=== PATIENT | male | born 1960 | race Caucasian/White ===

== ENCOUNTER 2021-02-03 09:45 | Outpatient (REF) | payer MEDICARE, SELFPAY ==
[2021-02-03 11:06] LABS: MANUAL DIFF FLAG NO
[2021-02-03 11:17] LABS: Basophils Percent Auto 0.5 % (0-2); Eosinophils Absolute Auto 0.1 X10*3/uL (0.0-0.4); Eosinophils Percent Auto 1.8 % (0-4); Hemoglobin 18.7 g/dl (14.0-18.0); Imm Gran Abs Auto 0.01 X10*3/uL (0.00-0.03); Imm Gran Pct Auto 0.2 % (0.0-0.4); Lymphocytes Absolute Auto 1.8 X10*3/uL (1.2-4.9); Lymphocytes Percent Auto 32.5 % (20-40); Mean Corpuscular HGB Conc 35.3 g/dl (31.0-36.0); Mean Corpuscular Hemoglobin 33.2 pg (27.0-33.0); Mean Platelet Volume 10.1 fL (9.4-12.4); Monocytes Absolute Auto 0.5 X10*3/uL (0.1-1.2); Monocytes Percent Auto 8.6 % (2-11); Neutrophils Absolute Auto 3.2 X10*3/uL (2.0-8.3); Neutrophils Percent Auto 56.4 % (45-73); Platelet Count 169 X10*3/uL (160-400); Red Blood Count 5.64 X10*6/uL (4.60-5.80); Red Cell Distribution Width 11.9 % (11.0-16.0); White Blood Count 5.7 X10*3/uL (4.8-10.8)
[2021-02-03 11:41] LABS: Alanine Aminotransferase 14 U/L (0-40); Albumin Level 4.5 g/dL (3.5-5.0); Alkaline Phosphatase 84 U/L (39-117); Anion Gap 13 (12-20); Aspartate Amino Transferase 15 U/L (5-37); Bilirubin Total 0.7 mg/dL (0.0-1.0); Blood Urea Nitrogen 12 mg/dL (9-16); Calcium 9.3 mg/dL (8.4-10.2); Carbon Dioxide 27 mmol/L (22-29); Chloride 105 mmol/L (96-108); Cholesterol 185 mg/dL; Estimated Glomerular Filt Rate > 60; Glucose Random 102 mg/dL (60-115); HDL Cholesterol 48 mg/dL; LDL Cholesterol Calculated 110 mg/dl; Potassium 4.4 mmol/L (3.3-5.1); Sodium 141 mmol/L (135-145); Total Protein 7.1 g/dL (6.5-8.0); Triglycerides 136 mg/dL
[2021-02-03 11:45] LABS: Free T4 (Free Thyroxine) 1.03 ng/dL (0.71-1.85); Prostate Specific Antigen Scr 0.74 ng/mL (<0.05-4.0); Thyroid Stimulating Hormone 0.99 uIU/mL (0.32-4.0)
[2021-02-03 11:55] LABS: Folate 16.9 ng/mL (> or = 4.0); Vitamin B12 300 pg/mL (200-900)
== END 2021-02-03 09:46 | disposition home or self-care (01) ==
LOC: HO.HMGCLDS 09:45
PROVIDERS: PCP Internal Medicine; Visit Provider Internal Medicine
DX: Z12.5 Encounter for screening for malignant neoplasm of prostate (principal); E78.1 Pure hyperglyceridemia; K21.9 Gastro-esophageal reflux disease without esophagitis; E78.00 Pure hypercholesterolemia, unspecified
CPT/HCPCS: 36415; 80053; 80061; 82607; 82746; 84153; 84439; 84443; 85025

== ENCOUNTER → 2021-02-17 14:13 | Outpatient (BNVA) | payer MEDICARE, SELFPAY | PROVIDERS: PCP Internal Medicine; Referring Provider Internal Medicine; Visit Provider Surgery | DX: K42.9 Umbilical hernia without obstruction or gangrene (principal) | CPT/HCPCS: 99202 ==

== ENCOUNTER 2022-05-28 08:26 | Outpatient (REF) | payer MEDICARE, SELFPAY ==
[2022-05-28 11:24] LABS: MANUAL DIFF FLAG NO
[2022-05-28 11:48] LABS: Alanine Aminotransferase 19 U/L (0-40); Albumin Level 4.3 g/dL (3.5-5.0); Alkaline Phosphatase 79 U/L (39-117); Anion Gap 11 (12-20); Aspartate Amino Transferase 18 U/L (5-37); Blood Urea Nitrogen 20 mg/dL (9-16); Carbon Dioxide 27 mmol/L (22-29); Chloride 104 mmol/L (96-108); Cholesterol 180 mg/dL; Estimated Glomerular Filt Rate > 60; Glucose Random 108 mg/dL (60-115); HDL Cholesterol 50 mg/dL; LDL Cholesterol Calculated 113 mg/dl; Potassium 4.2 mmol/L (3.3-5.1); Sodium 138 mmol/L (135-145); Total Protein 6.8 g/dL (6.5-8.0); Triglycerides 86 mg/dL
[2022-05-28 12:20] LABS: Free T4 (Free Thyroxine) 0.98 ng/dL (0.71-1.85); Prostate Specific Antigen Scr 0.56 ng/mL (<0.05-4.0); Thyroid Stimulating Hormone 0.86 uIU/mL (0.32-4.0)
[2022-05-28 12:43] LABS: Basophils Percent Auto 0.7 % (0-2); Eosinophils Absolute Auto 0.1 X10*3/uL (0.0-0.4); Eosinophils Percent Auto 0.8 % (0-4); Hematocrit 53.4 % (42.0-52.0); Hemoglobin 18.3 g/dl (14.0-18.0); Imm Gran Abs Auto 0.01 X10*3/uL (0.00-0.03); Imm Gran Pct Auto 0.2 % (0.0-0.4); Lymphocytes Absolute Auto 1.7 X10*3/uL (1.2-4.9); Lymphocytes Percent Auto 27.4 % (20-40); Mean Corpuscular HGB Conc 34.3 g/dl (31.0-36.0); Mean Corpuscular Hemoglobin 32.7 pg (27.0-33.0); Mean Corpuscular Volume 95.4 fL (80.0-98.0); Mean Platelet Volume 10.2 fL (9.4-12.4); Monocytes Absolute Auto 0.7 X10*3/uL (0.1-1.2); Monocytes Percent Auto 10.9 % (2-11); Neutrophils Absolute Auto 3.7 x10*3/uL (2.0-8.3); Platelet Count 163 X10*3/uL (160-400); Red Cell Distribution Width 11.6 % (11.0-16.0); White Blood Count 6.1 X10*3/uL (4.8-10.8)
[2022-05-28 16:55] LABS: Vitamin B12 326 pg/mL (200-900)
[2022-06-03 13:11] LABS: Testosterone, Total 466 ng/dL (250-1100)
== END 2022-05-28 08:27 | disposition home or self-care (01) ==
LOC: HO.HMGCLDS 08:26
PROVIDERS: PCP Internal Medicine; Visit Provider Internal Medicine
DX: Z12.5 Encounter for screening for malignant neoplasm of prostate (principal); R73.02 Impaired glucose tolerance (oral); F41.1 Generalized anxiety disorder; E78.00 Pure hypercholesterolemia, unspecified
CPT/HCPCS: 36415; 80053; 80061; 82607; 82746; 84153; 84403; 84439; 84443; 85025

== ENCOUNTER → 2022-07-30 09:58 | Outpatient (BNVA) | payer MEDICARE, SELFPAY | PROVIDERS: PCP Internal Medicine; Referring Provider Internal Medicine; Visit Provider Surgery | DX: K42.9 Umbilical hernia without obstruction or gangrene (principal) | CPT/HCPCS: 99212 ==

== ENCOUNTER 2022-08-25 06:03 | Day surgery (SDC) | payer MEDICARE, SELFPAY ==
[2022-08-20 11:02] VITALS: BMI 26.6
[2022-08-25] VITALS (11 sets, daily range): BP systolic 127–171; BP diastolic 89–125; PULSE 76–104; RESP 17–18; TEMP 36.2–36.4; O2SAT 93–98
[2022-08-25] MEDS: Lactated Ringers 1,000 ML 50 ML IVCONT (06:24)
--- NOTE | 2022-08-25 07:15 | P.CONAN_ITS ---
HPI - Anesthesia Eval Consult details Narrative: 62yo male patient for umbilical hernia repair with mesh PMFSH Active Problems Active Problems: All Active Problems (Updated 08/25/22 @ 07:20 by Aidee Yu MD) Erectile dysfunction (Acute) Disc disease, degenerative, cervical (Acute) Tobacco abuse (Acute) Ventral hernia without obstruction or gangrene (Acute) Sebaceous cyst (Acute) Impaired glucose tolerance (Acute) Generalized anxiety disorder (Acute) Polycythemia (Acute) Annual physical exam (Acute) Back pain (Acute) Cough (Acute) Pain of left scapula (Acute) Abdominal wall hernia (Acute) Colonoscopy refused (Acute) Umbilical hernia (Acute) Hypertriglyceridemia (Acute) GERD (gastroesophageal reflux disease) (Acute) Obstructive sleep apnea (Acute)- does not use CPAP. Cannot tolerate White coat syndrome- Initial BP today 08/25/22 ??171/121. No documented h/o HTN Very nervous Past Medical History Medical History Degenerative disc disease, cervical GERD (gastroesophageal reflux disease) Hypertriglyceridemia Migraine Obstructive sleep apnea Umbilical hernia Family History Family History Father No problems noted. Mother No problems noted. Brother No problems noted. Sister No problems noted. Sister No problems noted. Sister No problems noted. Sister No problems noted. Family history of problems with anesthesia: No Surgical History Surgical History History of shoulder surgery History of Problems with Anesthesia: No Social History Social History (Updated 08/25/22 @ 08:02 by Aidee Yu MD) Housing: Apartment Housing Other:: mobile home Are you a primary group care worker to a significant other at home: No Do you presently have visiting nurse or other home services: No Alcohol intake: never Patient Tobacco Use Status: Current everyday Tobacco user Tobacco use type: Cigarette Cigarette Packs Per Day: 1 Cigarettes Per Day: 20.0 Years Smoked: 25 Smoked in Last 30 Days: Yes e-Cigarette/Vaping Use: Never Used Second Hand Smoke Exposure: Yes Use of substances other than those prescribed or required for medical reasons: No Have you been hit, kicked, punched, or otherwise hurt by someone within the past year? If so, by whom?: No Are you DNR?: No Advance Directives: No Advance Directives Information Provided: Yes (brochure mailed) Advance Directives on File: No Recently lost weight without trying: No Eating poorly because of decreased appetite: No Nutrition Risks: No Nutritional Risk Poor oral hygiene: No service: No Current occupational status: disabled Cognitive needs: No Hearing needs: No Vision needs: Yes Meds Allergies Allergy/AdvReac Type Severity Reaction Status Date / Time No Known Allergies Allergy Verified 08/25/22 07:20 Active Medications: Current Medications Lactated Ringer's (Lr) 1,000 mls @ 50 mls/hr IVCONT .Q20H CHERYL Last Admin: 08/25/22 06:24 Dose: 50 mls/hr Exam Exam Date and Time: August 25, 2022 0715 Height,Weight and Vital Signs: Height 5 ft 8 in Weight 79.379 kg Last Vital Signs Temp 97.5 F 08/25/22 06:00 Pulse 87 08/25/22 06:59 Resp 18 08/25/22 06:59 BP 158/106 H 08/25/22 06:59 Pulse Ox 97 08/25/22 06:00 O2 Del Method 08/25/22 06:00 Airway Mallampati Class: III (Overcrowded teeth in front, high arched palate) TM Dist: >3cm Neck ROM: Limited (But extension OK) Loose/Missing/Broken Teeth: No (Denies broken, loose, missing teeth) Heart: RRR Lungs: CTAB Assessment and Plan Assessment Anesthesia Assessment: Anesthesia Plan Discussed and Chart Reviewed Final Anesthetic Review Family History of Problems with Anesthesia: No History of Problems with Anesthesia: No NPO: Yes ASA Class: III Final Preanesthetic Review: No Changes in Pt Med Stat, Meds/Allgs Chart Reviewed, Consent Obtained/Reviewed and Anes Risks/Benef Reviewed Patient Risk: Intermediate Procedure Risk: Low Assessment/Block/Sedation in SS: Assess/Block/Sedation-SS Anesthetic Plan Anesthetic Plan: GA Disposition: Standard PACU
--- NOTE | 2022-08-25 07:33 | MHC.SHP ---
Pre-Procedural Eval Section A Date of Service: 08/25/22 The patient is an INPATIENT: No Changes since office visit: No Cold of Flu in the past 2 weeks, No New Medical Problems, No Changes in Medication and No Patient answered all questions The History & Physical has been completed within 30 days and I have reviewed it.: Yes Section B Chief Complaint: Umbilical hernia without obstruction or gangrene Allergies: Allergies Allergy/AdvReac Type Severity Reaction Status Date / Time No Known Allergies Allergy Verified 08/25/22 07:20 Plan I have reviewed the history and physical and performed a pertinent physical examination on my patient. No changes have occurred unless specified. Time Spent With Patient Time: Total time managing care of this patient today ____ minutes.
--- NOTE | 2022-08-25 08:04 | P.OP_ITS ---
Operative Note Operative Note Date of Service: 08/25/22 Narrative: Diagnosis: Umbilical hernia Postop diagnosis: Umbilical hernia Procedure: Repair of umbilical hernia with Ventralex mesh Surgeon: Sukh Mora MD outpatient physical therapist assistant: ANTOINE Whitney The patient is a 62-year-old male with an umbilical hernia, reducible. He understood the technique of repair with mesh. He was aware of the risks, benefits, and alternatives He was brought to the operating room placed supine under general anesthesia via laryngeal mask airway. A surgical time-out was done. The abdomen was prepped and draped in the usual sterile fashion. The patient received cefazolin 2 g IV preoperatively I infiltrated the planned line of incision with lidocaine 1%. I made the transverse linear supraumbilical incision using blade 15. This was carried down with electrocautery through the full-thickness of the skin subcutaneous fat until was able to visualize the hernia. I proceeded to separate the hernia off of the rest the umbilicus using sharp dissection with Metzenbaum scissors as well as electrocautery until was able to lift off the umbilicus a flap. The entire hernia was from the flap. I continued to do sharply dissect the hernia off of the rest of the subcutaneous layer down to the fascial edges. I freed up the hernia contents from the fascial edge which sharp dissection until I was able to completely reduce this. This defect was about 1 cm in diameter. The hernia contains only fat. The margins under the defect were clears I positioned a small-sized Ventralex mesh flat under the fascia. I secured this to the fascial edge with Prolene 3 0 sutures to the Prolene straps of the mesh. I trimmed the Prolene straps flush on the fascial level. I closed the fascial defect with a figure-eight Maxon 1 stitch. The umbilicus was tacked down to the fascia with a Dexon 3-0 stitch to re-create the dimple. Subcutaneous layer was reapposed with Dexon 3-0 interrupted sutures. Skin closure was achieved with Dexon 4-0 subcuticular running sutures. The area was infiltrated with Marcaine 0.5% for postop analgesia.Steri-Strips and dressings were applied. The procedure was completed. The patient tolerated procedure well. There were no immediate complications. Initial and final counts of sponges and instruments were correct. Estimated blood loss was about less than 5 cc. The patient was extubated without difficulty and transferred to the recovery room with stable vital signs.
[2022-08-25] MEDS: fentaNYL citrate/PF 100 MCG/2 ML VIAL 25 MCG IVPUSH (08:34)
[2022-08-25] MEDS: Acetaminophen 325 MG TABLET 650 MG PO (08:35)
[2022-08-25] MEDS: oxyCODONE HCl Immed Release 5 MG TABLET PO (08:35)
== END 2022-08-25 09:43 | disposition home or self-care (01) ==
PROVIDERS: PCP Internal Medicine; Visit Provider Surgery
PROC: (CPT 49591; principal; 2022-08-25 07:30)
DX: K42.9 Umbilical hernia without obstruction or gangrene (principal); K21.9 Gastro-esophageal reflux disease without esophagitis; G47.33 Obstructive sleep apnea (adult) (pediatric); E78.1 Pure hyperglyceridemia; G43.909 Migraine, unspecified, not intractable, without status migrainosus; Z79.899 Other long term (current) drug therapy; F17.210 Nicotine dependence, cigarettes, uncomplicated
CPT/HCPCS: 49591; C1781; J0690; J1100; J1885; J2250; J2405; J2795; J3010

== ENCOUNTER → 2022-09-07 11:27 | Outpatient (BNVA) | payer MEDICARE, SELFPAY | PROVIDERS: PCP Internal Medicine; Visit Provider Surgery | DX: Z13.89 Encounter for screening for other disorder (principal) ==

== ENCOUNTER 2023-06-07 08:43 | Outpatient (AMB) | payer MEDICARE, SELFPAY ==
[2023-06-07 08:44] VITALS: BP 138/92; PULSE 91; O2SAT 97; BMI 25.1
--- NOTE | 2023-06-07 08:44 | A.OFFPC_ITS ---
Vital Signs 06/07/23 08:44 06/07/23 08:59 Height 5 ft 8 in Weight 165 lb 0.4 oz BMI 25.1 BP 138/92 H 136/90 H Blood Pressure Location Lt brachial Lt brachial Position Sitting Sitting Pulse 91 Pulse Source Pulse Oximeter Pulse Oximetry (%) 97 Oxygen Delivery Method Room Air Intake Visit Reasons: Annual exam Hand Engraver Required: No Allergies No Known Allergies Allergy (Verified 06/07/23 08:44) Medication List - Last Reconciled 06/07/23 by Mykel Chapa MD omeprazole 20 mg PO DAILY 90 days sildenafil (Viagra) 100 mg PO DAILY PRN Tobacco use date assessed: 06/07/23 Dental Screening Dental Screen Date: 06/07/23 Did you have a dental visit in the last 12 months?: Yes Did you have a dental problem in the last 6 months where you did not have access to dental care?: No Was dental information given to patient?: Patient has dentist HPI Annual exam HPI Details 63-year-old male smoker with a history o f impaired glucose tolerance GERD hypertriglyceridemia polycythemia generalized anxiety disorder last seen in November 2022. Patient is here for physical exam. sepereated with girlfriend and depressed lately [facility] Medical History (Updated 06/07/23 @ 09:17 by Mykel Chapa MD) Back pain Umbilical hernia Sebaceous cyst Ventral hernia without obstruction or gangrene Disc disease, degenerative, cervical Degenerative disc disease, cervical Abdominal wall hernia Pain of left scapula Cough Hypertriglyceridemia Migraine GERD (gastroesophageal reflux disease) Obstructive sleep apnea Surgical History History of umbilical hernia repair (08/25/22) History of shoulder surgery Family History (Updated 11/26/22 @ 08:40 by Kelly Chapin CMA) Father No problems noted. Mother No problems noted. Brother No problems noted. Sister No problems noted. Sister No problems noted. Sister No problems noted. Sister No problems noted. (Updated 06/07/23 @ 09:04 by Mykel Chapa MD) Housing: Apartment Housing Other:: mobile home Are you a primary managed care nurse to a significant other at home: No Do you presently have visiting nurse or other home services: No Alcohol intake: never Patient Tobacco Use Status: Current everyday Tobacco user Tobacco use type: Cigarette Cigarette Packs Per Day: 1 Cigarettes Per Day: 20.0 Years Smoked: 25, pack a day e-Cigarette/Vaping Use: Never Used Second Hand Smoke Exposure: Yes service: No Current occupational status: disabled Cognitive needs: No Hearing needs: No Vision needs: Yes Questionnaire PHQ-9 Over the last 2 weeks, how often have you been bothered by any of the following problems? 1. Little interest or pleasure in doing things: not at all 2. Feeling down, depressed, or hopeless: several days 3. Trouble falling or staying asleep, or sleeping too much: not at all 4. Feeling tired or having little energy: not at all 5. Poor appetite or overeating: not at all 6. Feeling bad about yourself - or that you are a failure or have let yourself or your family down: not at all 7. Trouble concentrating on things, such as reading the newspaper or watching television: not at all 8. Moving or speaking so slowly that other people could have noticed. Or the opposite - being so fidgety or restless that you have been moving around a lot more than usual: not at all 9. Thoughts that you would be better off or of hurting yourself in some way: not at all Total score: 1 Depression Screening Interpretation: Negative Depression Screening Done: Yes Source: Developed by Drs. Dagoberto Mazariegos, Nery Shin, Jero Emanuel and colleagues, with an educational penelope from [employer]. Thrive Questionnaire Date Thrive assessed: 11/26/22 AUDIT C Alcohol Use Questionnaire (AUDIT-C) 1. How often do you have a drink containing alcohol?: Monthly or less 2. How many drinks containing alcohol do you have on a typical day when you are drinking?: 1 or 2 3. How often do you have six or more drinks on one occasion?: Never Total Score: 1 WALLACE-7 AMB Questionnaire WALLACE-7 Date WALLACE - 7 assessed: 06/07/23 Feeling nervous, anxious, or on edge: 1 = Several days Not being able to stop or control worryin = Several days Worrying too much about different things: 0 = Not at all Trouble relaxin = Not at all Being so restless that it is hard to sit still: 0 = Not at all Becoming easily annoyed or irritable: 0 = Not at all Feeling afraid as if something awful might happen: 0 = Not at all Total WALLACE-7 score (0-4 normal; 5-9 mild; 10-14 moderate; 15-21 severe): 2 Source: Developed by Drs. Dagoberto Mazariegos, Nery Shin, Jero Emanuel and colleagues, with an educational penelope from [employer]. Review of Systems Const Denies poor appetite and Denies weakness Eyes Denies no additional complaints ENT Reports Normal hearing present, Denies dizziness, Denies nasal congestion, Denies tinnitus and Denies sore throat Card Denies chest pain, Denies syncope, Denies rapid heart rate and Denies dyspnea Resp Denies cough and Denies dyspnea GI Denies change in stool character, Reports constipation, Denies diarrhea, Denies nausea and Denies vomiting Denies dysuria and Denies urinary frequency Neuro Reports Normal hearing present, Denies confusion, Denies dizziness, Denies syncope and Denies weakness Psych Denies confusion Physical exam (Primary Care) Vital Signs: Last Vital Signs Pulse 91 06/07/23 08:44 BP 138/92 H 06/07/23 08:44 Pulse Ox 97 06/07/23 08:44 Oxygen Delivery Method Room Air 06/07/23 08:44 BMI result Body Mass Index 25.1 Tobacco/Smoking Status: Tobacco use Status Tobacco use date assessed 06/07/23 06/07/23 08:45 Patient Tobacco Use Status Current everyday Tobacco 06/07/23 08:45 Tobacco use type Cigarette 06/07/23 08:45 e-Cigarette/Vaping Use Never Used 06/07/23 08:45 PHQ-9: PHQ-9 Score PHQ-9: Total score 1 06/07/23 08:51 Depression Screening Interpretation: Negative Thrive Assessment: Date of Thrive Assessment Date Thrive assessed 11/26/22 06/07/23 08:45 Const General: No confusion Orientation/consciousness: No confusion HENMT Head: Yes normocephalic Ears: external ears normal and TM's normal bilaterally Face and sinus: Yes normal facial exam Mouth: moist mucous membranes Throat: Yes tonsils normal Eyes Conjunctivae: conjunctivae normal Pupils: Equal, round and reactive pupils present and Pupil accommodation reflex normal Direct Ophthalmoscopy: normal light reflex Neck Neck: No lymphadenopathy Thyroid: Thyroid normal Chest Chest palpation & inspection: normal inspection of the chest Resp Effort & Inspection: normal respiratory effort and no audible wheezes Auscultation: clear to auscultation bilaterally Cardio Rate: regular rate Rhythm: regular rhythm Peripheral pulses: radial pulses present and dorsalis pedis present GI Other: guaiac negative and proste mild enlarged no mass Inspection: Yes normal to inspection Palpation (GI): no masses Auscultation: normal bowel sounds and normoactive bowel sounds Male General Exam: Yes normal external exam Skin General skin exam: no rashes or lesions noted Rashes: no rashes Neuro General: No confusion Cranial nerves: Yes Equal, round and reactive pupils present and Yes Normal hearing present Cognition (Neuro): normal cognition Gait exam (Neuro): Normal gait present Motor exam (neuro): 5/5 motor strength present throughout Deep tendon reflexes (DTR's): Right brachioradialis reflex intensity grade: 2+, Left brachioradialis reflex intensity grade: 2+, Right patellar reflex intensity grade: 2+ and Left patellar reflex intensity grade: 2+ Extrem General: Yes normal to inspection and No edema Assessment and Plan Assessment & Plan (1) Annual physical exam: Code(s): Z00.00 - Encounter for general adult medical examination without abnormal findings (2) GERD (gastroesophageal reflux disease): Code(s): K21.9 - Gastro-esophageal reflux disease without esophagitis Qualifiers: Esophagitis presence: without esophagitis Qualified Code(s): K21.9 - Gastro-esophageal reflux disease without esophagitis Plan: Avoid the foods that causes that usually spicy foods, tomato products, juices, coffee, soda and foods that your sensitive to. After eating do not lie down, allow 3-4 hours before in lie down. And keep the head of bed above 30 degrees to avoid the acid from going up. Advised to stop smoking patient is on omeprazole (3) Obstructive sleep apnea: Comment: cannot tolerate CPAP (05/2021) Code(s): G47.33 - Obstructive sleep apnea (adult) (pediatric) Plan: Discussed importance of treating obstructive sleep apnea. Noted weight loss (4) Hypertriglyceridemia: Code(s): E78.1 - Pure hyperglyceridemia Plan: Avoid fried foods, chicken skin, eggs, butter margarine, pastries and meat. Be it pork or beef they have a lot of cholesterol LDL goal of less than 130 and triglyceride of less than 150 blood work requested (5) Polycythemia: Comment: discussed about stopping smoking Code(s): D75.1 - Secondary polycythemia Plan: Stop smoking! Continue to be followed (6) Tobacco abuse: Code(s): Z72.0 - Tobacco use Plan: Patient is advised strongly to stop smoking! (7) Generalized anxiety disorder: Comment: Declined any counseling Code(s): F41.1 - Generalized anxiety disorder Plan: Continue with medication declined any counseling (8) Impaired glucose tolerance: Code(s): R73.02 - Impaired glucose tolerance (oral) Plan: Decrease the amount of carbohydrate intake, pasta, bread, rice and potatoes are all sugar and that is aside from all the sweet stuff, remember that fruits are good but they are Sweet also. Blood work requested (9) Colonoscopy refused: Code(s): Z53.20 - Procedure and treatment not carried out because of patient's decision for unspecified reasons (10) Colon cancer screening: Code(s): Z12.11 - Encounter for screening for malignant neoplasm of colon (11) Blood pressure elevated without history of HTN: Code(s): R03.0 - Elevated blood-pressure reading, without diagnosis of hypertension Plan: blood pressure elevated , will monitor for now blood work advised Orders: Referrals Cologuard Test Z12.11 - Encounter for screening for malignant neoplasm of colon Psychiatry Referral F41.1 - Generalized anxiety disorder Coding Level of Care Code Est Pt Prev Care 40-64y([id number]) Diagnoses Annual physical exam Z00.00 Gastroesophageal reflux disease without esophagitis K21.9 Esophagitis presence: without esophagitis Obstructive sleep apnea G47.33 Hypertriglyceridemia E78.1 Polycythemia D75.1 Tobacco abuse Z72.0 Generalized anxiety disorder F41.1 Impaired glucose tolerance R73.02 Colonoscopy refused Z53.20 Colon cancer screening Z12.11 Blood pressure elevated without history of HTN R03.0
[2023-06-07 08:59] VITALS: BP 136/90
== END 2023-06-07 09:25 | disposition home or self-care (01) ==
PROVIDERS: Visit Provider Internal Medicine
DX: Z00.00 Encounter for general adult medical examination without abnormal findings (principal); K21.9 Gastro-esophageal reflux disease without esophagitis; G47.33 Obstructive sleep apnea (adult) (pediatric); E78.1 Pure hyperglyceridemia; D75.1 Secondary polycythemia; Z72.0 Tobacco use; F41.1 Generalized anxiety disorder; R73.02 Impaired glucose tolerance (oral); Z53.20 Procedure and treatment not carried out because of patient's decision for unspecified reasons; Z12.11 Encounter for screening for malignant neoplasm of colon; R03.0 Elevated blood-pressure reading, without diagnosis of hypertension
CPT/HCPCS: 99396

== ENCOUNTER 2023-06-17 06:28 | Outpatient (REF) | payer MEDICARE, SELFPAY ==
[2023-06-17 11:14] LABS: MANUAL DIFF FLAG NO
[2023-06-17 11:37] LABS: Basophils Percent Auto 0.5 % (0-2); Eosinophils Absolute Auto 0.1 X10*3/uL (0.0-0.4); Eosinophils Percent Auto 0.8 % (0-4); Hematocrit 53.7 % (42.0-52.0); Hemoglobin 18.1 g/dl (14.0-18.0); Imm Gran Abs Auto 0.02 X10*3/uL (0.00-0.03); Imm Gran Pct Auto 0.3 % (0.0-0.4); Lymphocytes Absolute Auto 1.5 X10*3/uL (1.2-4.9); Lymphocytes Percent Auto 23.4 % (20-40); Mean Corpuscular HGB Conc 33.7 g/dl (31.0-36.0); Mean Corpuscular Hemoglobin 32.7 pg (27.0-33.0); Mean Corpuscular Volume 97.1 fL (80.0-98.0); Mean Platelet Volume 10.7 fL (9.4-12.4); Monocytes Absolute Auto 0.6 X10*3/uL (0.1-1.2); Monocytes Percent Auto 9.2 % (2-11); Neutrophils Absolute Auto 4.1 x10*3/uL (2.0-8.3); Neutrophils Percent Auto 65.8 % (45-73); Platelet Count 179 X10*3/uL (160-400); Red Blood Count 5.53 X10*6/uL (4.60-5.80); Red Cell Distribution Width 11.7 % (11.0-16.0); White Blood Count 6.3 X10*3/uL (4.8-10.8)
[2023-06-17 11:52] LABS: Estimated Average Glucose 117 mg/dL; Hemoglobin A1c % 5.7 % (<6.0)
[2023-06-17 12:23] LABS: Alanine Aminotransferase 13 U/L (0-40); Albumin Level 4.4 g/dL (3.5-5.0); Alkaline Phosphatase 79 U/L (39-117); Anion Gap 11 (12-20); Aspartate Amino Transferase 15 U/L (5-37); Bilirubin Total 0.8 mg/dL (0.0-1.0); Blood Urea Nitrogen 23 mg/dL (9-16); Calcium 9.4 mg/dL (8.4-10.2); Carbon Dioxide 30 mmol/L (22-29); Chloride 107 mmol/L (96-108); Cholesterol 154 mg/dL (<200); Estimated Glomerular Filt Rate > 60; Glucose Random 111 mg/dL (60-115); HDL Cholesterol 51 mg/dL (>40); LDL Cholesterol Calculated 87 mg/dL (<100); Potassium 4.2 mmol/L (3.3-5.1); Sodium 144 mmol/L (135-145); Triglycerides 81 mg/dL (<150)
[2023-06-17 12:26] LABS: Free T4 (Free Thyroxine) 0.97 ng/dL (0.71-1.85); Thyroid Stimulating Hormone 1.14 uIU/mL (0.32-4.0)
[2023-06-17 12:35] LABS: Folate 9.2 ng/mL (> or = 4.0); Prostate Specific Antigen Scr 0.69 ng/mL (<0.05-4.0); Vitamin B12 311 pg/mL (200-900)
== END 2023-06-17 06:29 | disposition home or self-care (01) ==
LOC: HO.HMGCLDS 06:28
PROVIDERS: PCP Internal Medicine; Visit Provider Internal Medicine
DX: R73.02 Impaired glucose tolerance (oral) (principal); E78.1 Pure hyperglyceridemia; D75.1 Secondary polycythemia; E78.00 Pure hypercholesterolemia, unspecified; Z12.5 Encounter for screening for malignant neoplasm of prostate
CPT/HCPCS: 36415; 80053; 80061; 82607; 82746; 83036; 84153; 84439; 84443; 85025

== ENCOUNTER 2023-08-23 10:48 | Outpatient (AMB) | payer MEDICARE, SELFPAY ==
[2023-08-23 10:51] VITALS: BP 118/96; PULSE 131; O2SAT 98; BMI 25.2
--- NOTE | 2023-08-23 10:51 | MHC.PC.OV ---
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: No Allergies No Known Allergies Allergy (Verified 08/23/23 10:51) Medication List - Last Reconciled 08/23/23 by Mykel Chapa MD alprazolam 0.5 mg PO BID PRN 30 days omeprazole 20 mg PO DAILY 90 days sildenafil (Viagra) 100 mg PO DAILY PRN vilazodone (Viibryd) 20 mg PO DAILY Tobacco use date assessed: 08/23/23 Dental Screening Dental Screen Date: 08/23/23 HPI blood pressure elevated HPI Details 63-year-old male smoker with GERD obstructive sleep apnea hypertriglyceridemia generalized anxiety disorder impaired glucose tolerance last seen in May 2023 and noted to have an elevated blood pressure patient is here for follow-up. Blood work done showing polycythemia [facility] Medical History (Updated 08/23/23 @ 11:36 by Mykel Chapa MD) Back pain Umbilical hernia Sebaceous cyst Ventral hernia without obstruction or gangrene Disc disease, degenerative, cervical Degenerative disc disease, cervical Abdominal wall hernia Pain of left scapula Cough Hypertriglyceridemia Migraine GERD (gastroesophageal reflux disease) Obstructive sleep apnea Surgical History History of umbilical hernia repair (08/25/22) History of shoulder surgery Family History (Updated 11/26/22 @ 08:40 by Kelly Chapin [facility]) Father No problems noted. Mother No problems noted. Brother No problems noted. Sister No problems noted. Sister No problems noted. Sister No problems noted. Sister No problems noted. Social History (Updated 06/07/23 @ 09:04 by Mykel Chapa MD) Housing: Apartment Housing Other:: mobile home Are you a primary wound care center consultant to a significant other at home: No Do you presently have visiting nurse or other home services: No Alcohol intake: never Patient Tobacco Use Status: Current everyday Tobacco user Tobacco use type: Cigarette Cigarette Packs Per Day: 1 Cigarettes Per Day: 20.0 Years Smoked: 25, pack a day e-Cigarette/Vaping Use: Never Used Second Hand Smoke Exposure: Yes service: No Current occupational status: disabled Cognitive needs: No Hearing needs: No Vision needs: Yes Questionnaire PHQ-9 Over the last 2 weeks, how often have you been bothered by any of the following problems? 1. Little interest or pleasure in doing things: not at all 2. Feeling down, depressed, or hopeless: several days 3. Trouble falling or staying asleep, or sleeping too much: not at all 4. Feeling tired or having little energy: not at all 5. Poor appetite or overeating: not at all 6. Feeling bad about yourself - or that you are a failure or have let yourself or your family down: not at all 7. Trouble concentrating on things, such as reading the newspaper or watching television: not at all 8. Moving or speaking so slowly that other people could have noticed. Or the opposite - being so fidgety or restless that you have been moving around a lot more than usual: not at all 9. Thoughts that you would be better off or of hurting yourself in some way: not at all Total score: 1 Depression Screening Interpretation: Positive Depression Screening Follow-up: Existing condition and In treatment Depression Screening Done: Yes Source: Developed by Drs. Dagoberto Mazariegos, Nery Shin, Jero Emanuel and colleagues, with an educational penelope from [employer]. Thrive Questionnaire Date Thrive assessed: 08/23/23 I am a: Patient What is your living situation today?: I have a steady place to live Within the past 12 months, did the food you bought not last and you didn't have the money to get more?: Never true Within the past 12 months, did you worry whether your food would run out before you got money to buy more?: Never true Do you have trouble paying for medicines?: No Do you have trouble getting transportation to medical appointments?: No Do you have trouble paying your heating and electricity bill?: No Do you have trouble taking care of your child, family member or friend?: No Do you have trouble with day-to-day activities such as bathing, preparing meals, shopping, managing finances, etc.?: No Are you currently unemployed and looking for a job?: No Are you interested in more education?: No Please select the resources that you would like help with: None THRIVE Score: 0 AUDIT C Alcohol Use Questionnaire (AUDIT-C) 1. How often do you have a drink containing alcohol?: Monthly or less 2. How many drinks containing alcohol do you have on a typical day when you are drinking?: 1 or 2 3. How often do you have six or more drinks on one occasion?: Never Total Score: 1 WALLACE-7 AMB Questionnaire WALLACE-7 Date WALLACE - 7 assessed: 08/23/23 Feeling nervous, anxious, or on edge: 1 = Several days Not being able to stop or control worryin = Several days Worrying too much about different things: 0 = Not at all Trouble relaxin = Not at all Being so restless that it is hard to sit still: 0 = Not at all Becoming easily annoyed or irritable: 0 = Not at all Feeling afraid as if something awful might happen: 0 = Not at all Total WALLACE-7 score (0-4 normal; 5-9 mild; 10-14 moderate; 15-21 severe): 2 Source: Developed by Drs. Dagoberto Mazariegos, Nery Shin, Jero Emanuel and colleagues, with an educational penelope from [employer]. Physical exam (Primary Care) Vital Signs: Last Vital Signs Pulse 131 H 08/23/23 10:51 BP 118/96 H 08/23/23 10:51 Pulse Ox 98 08/23/23 10:51 Oxygen Delivery Method Room Air 08/23/23 10:51 BMI result Body Mass Index 25.2 Tobacco/Smoking Status: Tobacco use Status Tobacco use date assessed 08/23/23 08/23/23 10:52 Patient Tobacco Use Status Current everyday Tobacco 08/23/23 10:52 Tobacco use type Cigarette 08/23/23 10:52 e-Cigarette/Vaping Use Never Used 08/23/23 10:52 PHQ-9: PHQ-9 Score PHQ-9: Total score 1 08/23/23 11:36 Depression Screening Interpretation: Positive Depression Screening Follow-up: Existing condition and In treatment Thrive Assessment: Date of Thrive Assessment Date Thrive assessed 08/23/23 08/23/23 10:52 Const General: alert; No acute distress Eyes Conjunctivae: conjunctivae normal Resp Auscultation: clear to auscultation bilaterally Cardio Rate: regular rate Rhythm: regular rhythm GI Inspection: Yes normal to inspection Extrem General: Yes normal to inspection and No edema Assessment and Plan Assessment & Plan (1) Blood pressure elevated without history of HTN: Code(s): R03.0 - Elevated blood-pressure reading, without diagnosis of hypertension Plan: Concern about elevated blood pressure, low-salt diet (2) Tobacco abuse: Code(s): Z72.0 - Tobacco use Plan: Strongly advised to stop! (3) Impaired glucose tolerance: Code(s): R73.02 - Impaired glucose tolerance (oral) Plan: Decrease the amount of carbohydrate intake, pasta, bread, rice and potatoes are all sugar and that is aside from all the sweet stuff, remember that fruits are good but they are Sweet also. (4) Polycythemia: Comment: discussed about stopping smoking Code(s): D75.1 - Secondary polycythemia Plan: Patient is strongly advised to stop smoking! (5) Generalized anxiety disorder: Comment: Declined any counseling, 08/2023 counselling private Code(s): F41.1 - Generalized anxiety disorder Plan: medication for alprazolam advised and increased. decaf advised (6) Tachycardia: Code(s): R00.0 - Tachycardia, unspecified Plan: patient states very anxious. advised to drink decaf Medications: Changed From alprazolam 0.25 mg PO BEDTIME PRN 14 tabs 0RF sleep F41.1 - Generalized anxiety disorder To alprazolam 0.5 mg PO BID 30 days PRN 60 tabs 0RF sleep F41.1 - Generalized anxiety disorder Coding Level of Care Code Est Pt Level 4 (60182) Diagnoses Blood pressure elevated without history of HTN R03.0 Tobacco abuse Z72.0 Impaired glucose tolerance R73.02 Polycythemia D75.1 Generalized anxiety disorder F41.1 Tachycardia R00.0
== END 2023-08-23 11:51 | disposition home or self-care (01) ==
PROVIDERS: PCP Internal Medicine; Visit Provider Internal Medicine
DX: R03.0 Elevated blood-pressure reading, without diagnosis of hypertension (principal); Z72.0 Tobacco use; R73.02 Impaired glucose tolerance (oral); D75.1 Secondary polycythemia; F41.1 Generalized anxiety disorder; R00.0 Tachycardia, unspecified
CPT/HCPCS: 99214

== ENCOUNTER 2023-10-06 13:46 | Outpatient (AMB) | payer MEDICARE, SELFPAY ==
[2023-10-06 13:51] VITALS: BP 128/84; PULSE 76; O2SAT 97; BMI 25.7
--- NOTE | 2023-10-06 13:51 | MHC.PC.OV ---
Vital Signs 10/06/23 13:51 Height 5 ft 8 in Weight 169 lb BMI 25.7 BP 128/84 Blood Pressure Location Lt brachial Position Sitting Pulse 76 Pulse Source Pulse Oximeter Pulse Oximetry (%) 97 Oxygen Delivery Method Room Air Intake Visit Reasons: depression, WALLACE Distribution Specialist Required: No Allergies vilazodone [From Viibryd] Adverse Reaction (Intermediate, Verified 10/06/23 13:51) dizzy Tobacco use date assessed: 10/06/23 Dental Screening Dental Screen Date: 10/06/23 HPI depression, WALLACE HPI Details 63-year-old male smoker with a history of impaired glucose tolerance polycythemia generalized anxiety disorder and situational depression coming in for follow-up. Last seen in August 2023. Patient has been in contact with us the telephone regarding the depression has been referred for psychiatric evaluation. [facility] Medical History (Updated 10/06/23 @ 14:21 by Mykel Chapa MD) Back pain Umbilical hernia Sebaceous cyst Ventral hernia without obstruction or gangrene Disc disease, degenerative, cervical Degenerative disc disease, cervical Abdominal wall hernia Pain of left scapula Cough Hypertriglyceridemia Migraine GERD (gastroesophageal reflux disease) Obstructive sleep apnea Surgical History History of umbilical hernia repair (08/25/22) History of shoulder surgery Family History (Updated 11/26/22 @ 08:40 by Kelly Chapin CMA) Father No problems noted. Mother No problems noted. Brother No problems noted. Sister No problems noted. Sister No problems noted. Sister No problems noted. Sister No problems noted. Social History (Updated 06/07/23 @ 09:04 by Mykel Chapa MD) Housing: Apartment Housing Other:: mobile home Are you a primary home care nurse to a significant other at home: No Do you presently have visiting nurse or other home services: No Alcohol intake: never Patient Tobacco Use Status: Current everyday Tobacco user Tobacco use type: Cigarette Cigarette Packs Per Day: 1 Cigarettes Per Day: 20.0 Years Smoked: 25, pack a day e-Cigarette/Vaping Use: Never Used Second Hand Smoke Exposure: Yes service: No Current occupational status: disabled Cognitive needs: No Hearing needs: No Vision needs: Yes Questionnaire PHQ-9 Over the last 2 weeks, how often have you been bothered by any of the following problems? 1. Little interest or pleasure in doing things: not at all 2. Feeling down, depressed, or hopeless: several days 3. Trouble falling or staying asleep, or sleeping too much: not at all 4. Feeling tired or having little energy: not at all 5. Poor appetite or overeating: not at all 6. Feeling bad about yourself - or that you are a failure or have let yourself or your family down: not at all 7. Trouble concentrating on things, such as reading the newspaper or watching television: not at all 8. Moving or speaking so slowly that other people could have noticed. Or the opposite - being so fidgety or restless that you have been moving around a lot more than usual: not at all 9. Thoughts that you would be better off or of hurting yourself in some way: not at all Total score: 1 Depression Screening Interpretation: Positive Depression Screening Follow-up: Existing condition and In treatment Depression Screening Done: Yes Source: Developed by Drs. Dagoberto Mazariegos, Jero Gibson and colleagues, with an educational penelope from [employer]. Thrive Questionnaire Date Thrive assessed: 08/23/23 AUDIT C Alcohol Use Questionnaire (AUDIT-C) 1. How often do you have a drink containing alcohol?: Monthly or less 2. How many drinks containing alcohol do you have on a typical day when you are drinking?: 1 or 2 3. How often do you have six or more drinks on one occasion?: Never Total Score: 1 WALLACE-7 AMB Questionnaire WALLACE-7 Date WALLACE - 7 assessed: 08/23/23 Feeling nervous, anxious, or on edge: 1 = Several days Not being able to stop or control worryin = Several days Worrying too much about different things: 1 = Several days Trouble relaxin = Several days Being so restless that it is hard to sit still: 1 = Several days Becoming easily annoyed or irritable: 1 = Several days Feeling afraid as if something awful might happen: 0 = Not at all Total WALLACE-7 score (0-4 normal; 5-9 mild; 10-14 moderate; 15-21 severe): 6 Source: Developed by Drs. Dagoberto Mazariegos, Jero Gibson and colleagues, with an educational penelope from [employer]. Physical exam (Primary Care) Vital Signs: Last Vital Signs Pulse 76 10/06/23 13:51 BP 128/84 10/06/23 13:51 Pulse Ox 97 10/06/23 13:51 Oxygen Delivery Method Room Air 10/06/23 13:51 BMI result Body Mass Index 25.7 Tobacco/Smoking Status: Tobacco use Status Tobacco use date assessed 10/06/23 10/06/23 13:52 Patient Tobacco Use Status Current everyday Tobacco 10/06/23 13:52 Tobacco use type Cigarette 10/06/23 13:52 e-Cigarette/Vaping Use Never Used 10/06/23 13:52 PHQ-9: PHQ-9 Score PHQ-9: Total score 1 10/06/23 14:06 Depression Screening Interpretation: Positive Depression Screening Follow-up: Existing condition and In treatment Thrive Assessment: Date of Thrive Assessment Date Thrive assessed 08/23/23 10/06/23 13:52 Const General: alert; No acute distress Eyes Conjunctivae: conjunctivae normal Resp Auscultation: clear to auscultation bilaterally Cardio Rate: regular rate Rhythm: regular rhythm GI Inspection: Yes normal to inspection Extrem General: Yes normal to inspection and No edema Assessment and Plan Assessment & Plan (1) Situational depression: Code(s): F43.21 - Adjustment disorder with depressed mood Plan: Patient has been started on sertraline 25 mg once a day added anxiety medication. long discussion regarding tricks and tips to help distract mind. (2) Generalized anxiety disorder: Comment: Declined any counseling, 08/2023 counselling private Code(s): F41.1 - Generalized anxiety disorder Plan: Patient has been started on sertraline 25 mg a day edit anxiety medication (3) Tobacco abuse: Code(s): Z72.0 - Tobacco use Plan: Patient is strongly advised to stop smoking !!! Coding Level of Care Code Est Pt Level 4 (49127) Diagnoses Situational depression F43.21 Generalized anxiety disorder F41.1 Tobacco abuse Z72.0
== END 2023-10-06 14:46 | disposition home or self-care (01) ==
PROVIDERS: PCP Internal Medicine; Visit Provider Internal Medicine
DX: F43.21 Adjustment disorder with depressed mood (principal); F41.1 Generalized anxiety disorder; Z72.0 Tobacco use
CPT/HCPCS: 99214

== ENCOUNTER 2023-12-16 09:54 | Outpatient (AMB) | payer MEDICARE, SELFPAY ==
--- NOTE | 2023-12-16 12:06 | A.OFFPSYCH_ITS ---
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 Required: No Allergies sertraline Allergy (Intermediate, Unverified 10/17/23 14:00) serotonin syndrome vilazodone [From Viibryd] Adverse Reaction (Intermediate, Verified 10/06/23 13:51) dizzy Medication List - Last Reconciled 12/16/23 by Jamila Nguyen APRN lorazepam (Ativan) 0.5 mg PO BID PRN omeprazole 20 mg PO DAILY 90 days sildenafil (Viagra) 100 mg PO DAILY PRN HPI- Psychiatric Chief Complaint: consultation, Depression, anxiety HPI Narrative: Pt is a 63 yo man presenting with intractable depression and anxiety; Pt reports continued unpredictable episodes of sobbing and anxiety.He reports increased anxiety and avoidance of activities because he never know when he will sob uncontrollably. He reports anhedonia, low interest and low motivation to do previously anjoyed activities; He reports good support from mother, sisters, neighbors and friends. He reports passive SI but no real intent or plan. no psychosis. Pt reports this episode of depression and anxiety started after his GF broke up with him in April 2023 suddenly. He is in therapy with Elizabet at [facility] and [facility]. He reports his emotions worsened after being prescribed vilazadone 20mg and when he had more tearfulness with the vilazedone he was prescribed zoloft 25mg. He continued to have anxiety and pt states the zoloft was increased to 50mg. Pt states he had serotonin syndrome from the zoloft. Pt states he felt frighened and cried for 15 hours. He has been taking a low dose of xanax since the zoloft was discontinue; he started TMS in [facility] on with Dr Basilio at [facility]. Pt has been doing TMS 5 days a week fro several weeks and his last treatmetn is scheduled fro December 25. He reports he has had some moments where he has felt himself: calm, happy and no crying. Pt is fearful of taking any other medications but feel the xanax is not helping with the episodic anxiety and he feels he needs another benzodiazepine as needed until he feels better. Pt reports he has tried complemantary treatmetns including Brillia , a homeopathic remedy for qnxiety and takes B6. he halso has a device in his hime to clear excess energy from the environment that has been advertised to help people feel better. He has tried ashwaganda which caused him to feel more depressed. Past Psychiatric History: pt was on vilazedone 20mg in past from PCP in January 2021 after break-up with good effect. No IPLOC Subjective Subjective Subjective Medication Compliance: Yes Side effects from medications: Yes (reports negative reaction to SsRIs and reports xanax ineffective) Review of Systems Medical Review of Systems: unchanged Mental Status Exam Mental Status Exam Patient Appearance: Well Grooomed and Appropriate Patient Orientation: Person, Place, Time and Situation Level of Consciousness: Awake and Restless Patient Behavior: Appropriate and Crying Mood Description: Labile and Sad Affect Description: Anxious, Labile and Sad Patient Cognition Impaired: No Ability to Follow Directions: Good Speech Pattern: Clear and Perseverating Memory Description: Episodic Impaired Hallucinations: None Delusions: Not Present Thought Process: Intact and Goal Oriented Thought Content: positive for Intact, positive for Perseveration, positive for Preoccupation and positive for Suicidal Ideation (passive with n intent or plan ) Depressive Symptoms: Increased Anxiety, Diff. Making Decisions, Increased Irritability, Crying Spells, Hopelessness, Isolating-Friends/Family, Thoughts of /Suicide and Difficulty Concentrating Judgement: Fair Assessment and Plan Assessment & Plan (1) Generalized anxiety disorder: Status: Acute Code(s): F41.1 - Generalized anxiety disorder (2) Major depressive disorder, recurrent episode with anxious distress: Status: Acute Code(s): F33.9 - Major depressive disorder, recurrent, unspecified Plan 63 yo male with depression and anxiety which worsened after a sudden break up of a long relationship; pt feel SSRIs worsened symptoms; benefitting from TMS at this time. differential is WALLACE, grief, Dependent PD Plan: continue TMS as scheduled. stop xanax and start ativan 0.5mg BID watch fro sedation/daytime sleepiness. return in 2-3 weeks Medications: New lorazepam (Ativan) 0.5 mg PO BID PRN 60 tabs 0RF anxiety Discontinued mirtazapine Discontinued Reason: Doctor's Order 15 mg PO BEDTIME 30 tabs 0RF F43.21 - Adjustment disorder with depressed mood alprazolam Discontinued Reason: Doctor's Order 0.5 mg PO BID 15 days PRN 30 tabs 0RF sleep F41.1 - Generalized anxiety disorder Counseling and coordination of Care Pt. Self Management counseling: Maintenance-social rhythm, Mod caffeine/ETOH intake, Sleep hygiene and Greif counseling Medication management counseling: Effectiveness, Side effects, Dosing range, Duration, Drug interaction and Adherence Diagnosis and Prognosis Counseling: Accuracy of diagnosis, Prognosis over time, Impact of diagnosis on life functions and Adequacy of current interventions Details: I spent 75 minutes reviewing the record, seeing the patient and documenting in the medical record. Counseling provided to the patient/caregiver as outlined below. Addressed patient/caregiver concerns regarding current medication regime including effective adherence. Addressed patient/caregiver concerns regarding diagnosis and prognosis including accuracy of diagnosis, prognosis over time, impact of diagnosis. Addressed patient/caregiver concerns regarding impact of recent stressors. [facility], [facility] Medical History (Updated 12/16/23 @ 13:46 by Jamila Nguyen APRN) Back pain Umbilical hernia Sebaceous cyst Ventral hernia without obstruction or gangrene Disc disease, degenerative, cervical Degenerative disc disease, cervical Abdominal wall hernia Pain of left scapula Cough Hypertriglyceridemia Migraine GERD (gastroesophageal reflux disease) Obstructive sleep apnea Surgical History History of umbilical hernia repair (08/25/22) History of shoulder surgery Family History (Updated 11/26/22 @ 08:40 by Kelly Chapin CMA) Father No problems noted. Mother No problems noted. Brother No problems noted. Sister No problems noted. Sister No problems noted. Sister No problems noted. Sister No problems noted. Social History (Updated 06/07/23 @ 09:04 by Mykel Chapa MD) Housing: Apartment Housing Other:: mobile home Are you a primary director critical care to a significant other at home: No Do you presently have visiting nurse or other home services: No Alcohol intake: never Patient Tobacco Use Status: Current everyday Tobacco user Tobacco use type: Cigarette Cigarette Packs Per Day: 1 Cigarettes Per Day: 20.0 Years Smoked: 25, pack a day e-Cigarette/Vaping Use: Never Used Second Hand Smoke Exposure: Yes service: No Current occupational status: disabled Cognitive needs: No Hearing needs: No Vision needs: Yes Social History: lives alone; disable from neck injury from working heavy [employer] for years at [employer]. denies financial stress. reports many family and friend supports; has hobbies and enjoys being with peolle when feeling better Substance History: none Trauma History: unknown Coding Level of Care Code Psych Diag Eval w/Med (69531) Diagnoses Generalized anxiety disorder F41.1 Major depressive disorder, recurrent episode with anxious distress F33.9
== END 2023-12-16 10:30 | disposition home or self-care (01) ==
LOC: HO.HOP 09:54
PROVIDERS: PCP Internal Medicine; Visit Provider Clinical Nurse Specialist Psychiatric/Mental Health
DX: F41.1 Generalized anxiety disorder (principal); F33.9 Major depressive disorder, recurrent, unspecified
CPT/HCPCS: 90792

== ENCOUNTER → 2023-12-16 09:54 | Outpatient (BNVA) | payer MEDICARE, SELFPAY | PROVIDERS: PCP Internal Medicine; Visit Provider Clinical Nurse Specialist Psychiatric/Mental Health | DX: F41.1 Generalized anxiety disorder (principal); F33.9 Major depressive disorder, recurrent, unspecified | CPT/HCPCS: 90792 ==

== ENCOUNTER 2024-01-06 12:54 | Outpatient (AMB) | payer MEDICARE, SELFPAY ==
--- NOTE | 2024-01-06 13:05 | A.OFFPSYCH_ITS ---
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 Required: No Allergies sertraline Allergy (Intermediate, Unverified 10/17/23 14:00) serotonin syndrome vilazodone [From Viibryd] Adverse Reaction (Intermediate, Verified 10/06/23 13:51) dizzy Medication List - Last Reconciled 01/06/24 by Jamila Nguyen APRN omeprazole 20 mg PO DAILY 90 days sildenafil (Viagra) 100 mg PO DAILY PRN HPI- Psychiatric Chief Complaint: anxiety, depression HPI Narrative: pt reports improved mood - less depression, less labile, less sadness, less tearful; pt continues with some anxiety; he reports intermittent anxiety attacks; reports the lorazepam is too sedating and he can't take it without resting for the day. He feels the TMS has helped. he is tapering off and will have his last treatment next week; he does not want to start another new medication because he is fearful od side effects; he would like t go back on the xanax as it is less sedating. no SI or HI. Past Psychiatric History: pt was on vilazedone 20mg in past from PCP in January 2021 after break-up with good effect. No IPLOC Mental Status Exam Mental Status Exam Patient Appearance: Well Grooomed and Appropriate Patient Orientation: Person, Place, Time and Situation Level of Consciousness: Awake Patient Behavior: Appropriate Mood Description: Calm Affect Description: Calm Ability to Follow Directions: Good Speech Pattern: Clear and Excessive Memory Description: Intact Hallucinations: None Delusions: Not Present Thought Process: Intact Thought Content: positive for Intact and positive for Loose Associations Judgement: Fair Assessment and Plan Assessment & Plan (1) Major depressive disorder, recurrent episode with anxious distress: Status: Acute Code(s): F33.9 - Major depressive disorder, recurrent, unspecified Medications: New alprazolam 0.25 mg PO TID PRN 90 tabs 1RF anxiety Discontinued lorazepam (Ativan) Discontinued Reason: Doctor's Order 0.5 mg PO BID PRN 60 tabs 0RF anxiety Counseling and coordination of Care Medication management counseling: Effectiveness, Side effects, Dosing range, Duration, Drug interaction and Adherence Diagnosis and Prognosis Counseling: Accuracy of diagnosis, Prognosis over time, Impact of diagnosis on life functions, Impact of family relationship, Probl ematic behaviors secondary to diagnosis and Adequacy of current interventions Details: I spent 45 minutes reviewing the record, seeing the patient and documenting in the medical record. Counseling provided to the patient/caregiver as outlined below. Addressed patient/caregiver concerns regarding current medication regime including effective adherence. Addressed patient/caregiver concerns regarding diagnosis and prognosis including accuracy of diagnosis, prognosis over time, impact of diagnosis. Addressed patient/caregiver concerns regarding impact of recent stressors. REPLACED BY [facility] Medical History (Updated 12/16/23 @ 13:46 by Jamila Nguyen APRN) Back pain Umbilical hernia Sebaceous cyst Ventral hernia without obstruction or gangrene Disc disease, degenerative, cervical Degenerative disc disease, cervical Abdominal wall hernia Pain of left scapula Cough Hypertriglyceridemia Migraine GERD (gastroesophageal reflux disease) Obstructive sleep apnea Surgical History History of umbilical hernia repair (08/25/22) History of shoulder surgery Family History (Updated 11/26/22 @ 08:40 by Kelly Chapin [facility]) Father No problems noted. Mother No problems noted. Brother No problems noted. Sister No problems noted. Sister No problems noted. Sister No problems noted. Sister No problems noted. Social History (Updated 06/07/23 @ 09:04 by Mykel Chapa MD) Housing: Apartment Housing Other:: mobile home Are you a primary pet caregiver to a significant other at home: No Do you presently have visiting nurse or other home services: No Alcohol intake: never Patient Tobacco Use Status: Current everyday Tobacco user Tobacco use type: Cigarette Cigarette Packs Per Day: 1 Cigarettes Per Day: 20.0 Years Smoked: 25, pack a day e-Cigarette/Vaping Use: Never Used Second Hand Smoke Exposure: Yes service: No Current occupational status: disabled Cognitive needs: No Hearing needs: No Vision needs: Yes Social History: lives alone; 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 denies financial stress. reports many family and friend supports; has hobbies and enjoys being with peolle when feeling better Substance History: none Trauma History: unknown Coding Level of Care Code Est Pt Level 5 (98902) Diagnoses Major depressive disorder, recurrent episode with anxious distress F33.9
== END 2024-01-06 13:39 | disposition home or self-care (01) ==
LOC: HO.HOP 12:54
PROVIDERS: PCP Internal Medicine; Visit Provider Clinical Nurse Specialist Psychiatric/Mental Health
DX: F33.9 Major depressive disorder, recurrent, unspecified (principal)
CPT/HCPCS: 99215

== ENCOUNTER → 2024-01-06 12:54 | Outpatient (BNVA) | payer MEDICARE, SELFPAY | PROVIDERS: PCP Internal Medicine; Visit Provider Clinical Nurse Specialist Psychiatric/Mental Health | DX: F33.9 Major depressive disorder, recurrent, unspecified (principal) | CPT/HCPCS: 99212 ==

== ENCOUNTER 2024-02-09 11:37 | Outpatient (AMB) | payer MEDICARE, SELFPAY ==
--- NOTE | 2024-02-09 11:43 | MHC.OFFWIV ---
Intake Vital Signs 02/09/24 11:44 Height 5 ft 8 in Weight 166 lb BMI 25.2 BP 136/96 H Blood Pressure Location Rt brachial Position Sitting Pulse 117 H Pulse Source Pulse Oximeter Pulse Oximetry (%) 96 Oxygen Delivery Method Room Air Intake Visit Reasons: cluster headaches Intake Note: pt c/o cluster headaches. ongoing for 3 weeks Patient Tobacco Use Status: Current everyday Tobacco user Allergies sertraline Allergy (Intermediate, Verified 02/09/24 11:43) serotonin syndrome vilazodone [From Viibryd] Adverse Reaction (Intermediate, Verified 02/09/24 11:43) dizzy Do you need a note to return to daycare/school/sports/work: No HPI HPI Comments History of Present Illness Details Patient is a 63yo M who presents to the office with cluster headache complaint 3 weeks ago onset [facility] secondary to mowing the lawn Unable to get in with primary care off of a R sided frontal and eye headache Went to on 01/31 and diagnosed with sinusitis and given augmentin No resolution so he went to the ER at [facility] and pt states he was given medicines without relief Was home with with another round of Augmentin No resolution so he went last night and had a CT scan ordered. He was told normal sinus CT Was given Tylenol, dexamethasone, toradol, reglan, sumatriptan, mag sulfate Diagnosed with cluster headache last night He said headache was still bad after medicines last night Today it feels fine now but is worse at night; occurs around 9pm everynight +glasses use When he gets headaches he gets R sided eye headache with eye watering No unilateral weakness or numbness No trauma or injury Pt has hx of cluster headaches; 20 years ago was given verapamil and an injectible sumatriptan Pt called his PCP today and unable to get appointment an was looking for further medications [facility] Medical History (Updated 02/09/24 @ 12:37 by Nohemi Merida PA-C) Back pain Umbilical hernia Sebaceous cyst Ventral hernia without obstruction or gangrene Disc disease, degenerative, cervical Degenerative disc disease, cervical Abdominal wall hernia Pain of left scapula Cough Hypertriglyceridemia Migraine GERD (gastroesophageal reflux disease) Obstructive sleep apnea Surgical History History of umbilical hernia repair (08/25/22) History of shoulder surgery Family History (Updated 11/26/22 @ 08:[address] [facility]) Father No problems noted. Mother No problems noted. Brother No problems noted. Sister No problems noted. Sister No problems noted. Sister No problems noted. Sister No problems noted. Social History (Updated 06/07/23 @ 09:04 by Mykel Chapa MD) Housing: Apartment Housing Other:: mobile home Are you a primary career transition specialist to a significant other at home: No Do you presently have visiting nurse or other home services: No Alcohol intake: never Patient Tobacco Use Status: Current everyday Tobacco user Tobacco use type: Cigarette Cigarette Packs Per Day: 1 Cigarettes Per Day: 20.0 Years Smoked: 25, pack a day e-Cigarette/Vaping Use: Never Used Second Hand Smoke Exposure: Yes service: No Current occupational status: disabled Cognitive needs: No Hearing needs: No Vision needs: Yes Review of Systems Const Denies chills, Reports fatigue, Denies fever(s) and Reports headache(s) Eyes Denies blurry vision ENT Denies dizziness, Denies otalgia, Reports headache(s), Denies nasal discharge, Denies sinus pain and Denies sore throat Card Denies chest pain, Denies syncope and Denies dyspnea Resp Denies cough and Denies dyspnea GI Denies abdominal pain and Denies vomiting Musc Denies myalgias Skin/Breast Denies rash Neuro Denies dizziness, Denies syncope and Reports headache(s) Endo Reports fatigue Physical Exam Vital Signs: Last Vital Signs Pulse 117 H 02/09/24 11:44 BP 136/96 H 02/09/24 11:44 Pulse Ox 96 02/09/24 11:44 Oxygen Delivery Method Room Air 02/09/24 11:44 BMI result Body Mass Index 25.2 General: Non-toxic, NAD. Speaking full sentences. Skin: Warm dry throughout Eye: EOMI, PERRL. No periocular edema, erythema or rashes HENT: Airway patent. Uvula midline. No pharyngeal erythema or edema. No STRUCTURAL FITTER. Bilateral canals clear. TM non-erythematous, non-bulging. No TM perforation or hemotympanum noted. Respiratory: CTA bilaterally. No wheezes, rales or rhonchi Cardiac: RRR. No murmur MSK: Full ROM extremities. Neurology: A/O x 3. Finger to nose tracing equal. Negative pronator drift. CN 2-12 grossly intact. No aphasia or facial droop. Gait without abnormality Psych: Good mood and affect Assessment & Plan Assessment & Plan (1) Cluster headache: Code(s): G44.009 - Cluster headache syndrome, unspecified, not intractable Qualifiers: Headache chronicity pattern: episodic headache Intractability: not intractable Qualified Code(s): G44.019 - Episodic cluster headache, not intractable Plan: Pt seen and evaluated Headache fine at office visit No neurological deficit on examination Do not feel comfortable starting pt on maintance verapamil Fiorcet x 5 tablets; discussed use and side effects with pt Has follow up with PCP on Wednesday Any worse will go to ER He gave verbal understanding and had no additional questions at this time. Medications: New hotqsxlumr-fpvrezkcviybk-dhsf 50-300-40 mg (Fioricet) Take for headache at night prn. Can cause lethargy. No alcohol or driving. Do not take viagra with this medication. 1 cap PO ONCE PRN 5 caps 0RF pain Coding Level of Care Code Est Pt Level 3 (76868) Diagnoses Episodic cluster headache, not intractable G44.019 Headache chronicity pattern: episodic headache Intractability: not intractable
[2024-02-09 11:44] VITALS: BP 136/96; PULSE 117; O2SAT 96; BMI 25.2
== END 2024-02-09 12:09 | disposition home or self-care (01) ==
PROVIDERS: PCP Internal Medicine; Visit Provider Physician Assistant
DX: G44.019 Episodic cluster headache, not intractable (principal)
CPT/HCPCS: 99213

== ENCOUNTER 2024-02-10 13:21 | Outpatient (AMB) | payer MEDICARE, SELFPAY ==
[2024-02-10 13:30] VITALS: BP 140/78; PULSE 116; O2SAT 97; BMI 24.9
--- NOTE | 2024-02-10 13:30 | MHC.PC.OV ---
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 Required: No Allergies sertraline Allergy (Intermediate, Verified 02/10/24 14:05) serotonin syndrome vilazodone [From Viibryd] Adverse Reaction (Intermediate, Verified 02/10/24 14:05) dizzy SSRI Allergy (Mild, Uncoded 02/10/24 14:05) serotonin syndrome Medication List - Last Reconciled 02/10/24 by Meredith Lagos PA-C alprazolam 0.25 mg PO TID PRN qzgxprnuys-mljhfawiyulyd-irkf 50-300-40 mg (Fioricet) 1 cap PO ONCE PRN omeprazole 20 mg PO DAILY 90 days sildenafil (Viagra) 100 mg PO DAILY PRN Tobacco use date assessed: 10/06/23 Dental Screening Dental Screen Date: 10/06/23 HPI Cluster Headaches HPI Details 63-year-old male with past medical history obstructive sleep apnea, GERD, hypertriglyceridemia, generalized anxiety disorder, impaired glucose tolerance, depression last seen by Dr. Chapa 09/2023 coming in for acute problem.? In review of the notes, patient was recently seen in walk-in clinic 02/09/24 for cluster headache given Fioricet.? Was seen in [facility] for similar problem the day prior and given Tylenol, dexamethasone, toradol, reglan, sumatriptan, mag sulfate and diagnosed with a cluster headache.? He also regularly follows with psych last seen 12/2023 and given alprazolam. Today he tells us he has a history of cluster headaches and it was previously seen by Dr. Suarez who diagnosed him with cluster headaches and treated him with subcutaneous sumatriptan. Recently has been doing TMS for treatment after serotonin syndrome. He has been having cluster headaches for the past 2-1/2 weeks and has been seen by several providers who have also diagnosed with cluster headaches and their treatment did not help. He states the sumatriptan subcutaneous helped in the past and he was previously on verapamil as well. Denies any chest pain, short of breath, or weaknesses. [facility] Medical History (Updated 02/09/24 @ 12:37 by Nohemi Merida PA-C) Back pain Umbilical hernia Sebaceous cyst Ventral hernia without obstruction or gangrene Disc disease, degenerative, cervical Degenerative disc disease, cervical Abdominal wall hernia Pain of left scapula Cough Hypertriglyceridemia Migraine GERD (gastroesophageal reflux disease) Obstructive sleep apnea Surgical History History of umbilical hernia repair (08/25/22) History of shoulder surgery Family History (Updated 11/26/22 @ 08:40 by Kelly Chapin [facility]) Father No problems noted. Mother No problems noted. Brother No problems noted. Sister No problems noted. Sister No problems noted. Sister No problems noted. Sister No problems noted. Social History (Updated 06/07/23 @ 09:04 by Mykel Chapa MD) Housing: Apartment Housing Other:: mobile home Are you a primary home day care provider to a significant other at home: No Do you presently have visiting nurse or other home services: No Alcohol intake: never Patient Tobacco Use Status: Current everyday Tobacco user Tobacco use type: Cigarette Cigarette Packs Per Day: 1 Cigarettes Per Day: 20.0 Years Smoked: 25, pack a day e-Cigarette/Vaping Use: Never Used Second Hand Smoke Exposure: Yes service: No Current occupational status: disabled Cognitive needs: No Hearing needs: No Vision needs: Yes Questionnaire PHQ-9 Over the last 2 weeks, how often have you been bothered by any of the following problems? 1. Little interest or pleasure in doing things: not at all 2. Feeling down, depressed, or hopeless: several days 3. Trouble falling or staying asleep, or sleeping too much: not at all 4. Feeling tired or having little energy: not at all 5. Poor appetite or overeating: not at all 6. Feeling bad about yourself - or that you are a failure or have let yourself or your family down: not at all 7. Trouble concentrating on things, such as reading the newspaper or watching television: not at all 8. Moving or speaking so slowly that other people could have noticed. Or the opposite - being so fidgety or restless that you have been moving around a lot more than usual: not at all 9. Thoughts that you would be better off or of hurting yourself in some way: not at all Total score: 1 Depression Screening Interpretation: Positive Depression Screening Follow-up: Existing condition and In treatment Depression Screening Done: Yes Source: Developed by Drs. Dagoberto Mazariegos, Jero Gibson and colleagues, with an educational penelope from [employer]. Thrive Questionnaire Date Thrive assessed: 08/23/23 I am a: Patient What is your living situation today?: I have a steady place to live Within the past 12 months, did the food you bought not last and you didn't have the money to get more?: Never true Within the past 12 months, did you worry whether your food would run out before you got money to buy more?: Never true Do you have trouble paying for medicines?: No Do you have trouble getting transportation to medical appointments?: No Do you have trouble paying your heating and electricity bill?: No Do you have trouble taking care of your child, family member or friend?: No Do you have trouble with day-to-day activities such as bathing, preparing meals, shopping, managing finances, etc.?: No Are you currently unemployed and looking for a job?: No Are you interested in more education?: No Please select the resources that you would like help with: None Currently or been in a relationship where the following occur: No concerns reported THRIVE Score: 0 AUDIT C Alcohol Use Questionnaire (AUDIT-C) 1. How often do you have a drink containing alcohol?: Monthly or less 2. How many drinks containing alcohol do you have on a typical day when you are drinking?: 1 or 2 3. How often do you have six or more drinks on one occasion?: Never Total Score: 1 WALLACE-7 AMB Questionnaire WALLACE-7 Date WALLACE - 7 assessed: 08/23/23 Source: Developed by Drs. Dagoberto Mazariegos, Jero Gibson and colleagues, with an educational penelope from [employer]. Review of Systems Const Denies body aches, Denies chills, Denies fever(s), Reports headache(s) and Denies poor appetite Eyes Reports no additional complaints ENT Reports Normal hearing present, Denies dysphagia, Denies dizziness, Reports headache(s) and Denies odynophagia Card Denies chest pain, Denies syncope, Denies edema, Denies irregular heart rhythm, Denies lightheadedness and Denies dyspnea Resp Denies cough and Denies dyspnea GI Denies abdominal pain, Denies constipation, Denies dysphagia, Denies diarrhea, Denies nausea, Denies odynophagia and Denies vomiting Reports no additional complaints Musc Reports no additional complaints and Denies abnormal gait Skin/Breast Reports system reviewed and no additional complaints, except as documented Neuro Reports Normal hearing present, Denies abnormal gait, Denies dizziness, Denies syncope and Reports headache(s) Psych Reports no additional complaints Physical exam (Primary Care) Vital Signs: Last Vital Signs Pulse 116 H 02/10/24 13:30 BP 140/78 H 02/10/24 13:30 Pulse Ox 97 02/10/24 13:30 Oxygen Delivery Method Room Air 02/10/24 13:30 BMI result Body Mass Index 24.9 Tobacco/Smoking Status: Tobacco use Status Tobacco use date assessed 10/06/23 02/10/24 13:31 Patient Tobacco Use Status Current everyday Tobacco 02/10/24 13:31 Tobacco use type Cigarette 02/10/24 13:31 e-Cigarette/Vaping Use Never Used 02/10/24 13:31 PHQ-9: PHQ-9 Score PHQ-9: Total score 1 02/10/24 13:49 Depression Screening Interpretation: Positive Depression Screening Follow-up: Existing condition and In treatment Thrive Assessment: Date of Thrive Assessment Date Thrive assessed 08/23/23 02/10/24 13:31 Currently or been in a relationship where the following occur: No concerns reported Const General: cooperative, healthy appearing, comfortable and no acute distress Orientation/consciousness: patient oriented x3 HENMT Head: Yes normocephalic Ears: hearing grossly normal bilaterally General nose exam: Normal external nose present Eyes General: appearance normal, both eyes and all related structures Conjunctivae: conjunctivae normal Pupils: Equal, round and reactive pupils present Neck Neck: Yes full ROM and Yes no lymphadenopathy Resp Effort & Inspection: normal respiratory effort Auscultation: clear to auscultation bilaterally, no crackles, no rales, no rhonchi and no wheezes Cardio Rate: regular rate Rhythm: regular rhythm Skin General skin exam: no rashes or lesions noted Neuro General: patient oriented x3 Cranial nerves: Yes Facial sensation intact/muscles of mastication intact, Yes Equal, round and reactive pupils present, Yes Normal accommodation reflex present, Yes Bilaterally intact EOM present, Yes Nystagmus not present, Yes Midline tongue present, Yes Normal hearing present, Yes Ability to bilaterally rotate head present and Yes Ability to bilaterally elevate shoulders present Gait exam (Neuro): Normal gait present Motor exam (neuro): Pronator motor function not present Extrem General: Yes normal to inspection, Yes full ROM and No edema Psych Affect: normal affect Attitude: cooperative Insight: Good insight present (Psych) Judgement: Good judgement present (Psych) Assessment and Plan Assessment & Plan (1) Cluster headache: Code(s): G44.009 - Cluster headache syndrome, unspecified, not intractable Qualifiers: Headache chronicity pattern: episodic headache Intractability: not intractable Qualified Code(s): G44.019 - Episodic cluster headache, not intractable Plan: On exam there is no evidence of neurological deficits and no focal weakness. His pain is mild right now but states it usually worsens around nighttime. Patient was previously on sumatriptan subcutaneously and found good relief from this. This medication was sent to their pharmacy today. I do not believe imaging is necessary at this time however if after treatment with the sumatriptan patient continues to have headaches we should consider MRI. Please follow up with our office if your headaches do not improve or they worsen or you began to have chest pain or shortness of breath. Plan This note was constructed using voice recognition software. While every effort has been made to ensure accuracy and anthropometrist, still areas may have been included sometimes these areas may affect the content or meeting of the given symptoms. Total time spent caring for the patient today was 35 minutes. This includes time spent before the visit reviewing the chart, time spent during the visit, and time spent after the visit and documentation. Medications: New sumatriptan succinate 6 mg (0.5 mL) subcut ONCE PRN 1 mL 2RF cluster headache Coding Level of Care Code Est Pt Level 4 (04757) Diagnoses Episodic cluster headache, not intractable G44.019 Headache chronicity pattern: episodic headache Intractability: not intractable
== END 2024-02-10 14:24 | disposition home or self-care (01) ==
PROVIDERS: PCP Internal Medicine
DX: G44.019 Episodic cluster headache, not intractable (principal)
CPT/HCPCS: 99214

== ENCOUNTER → 2024-02-17 07:55 | Outpatient (REF) | payer MEDICARE, SELFPAY ==
--- NOTE | 2024-02-17 08:05 | ECG_ITS ---
Test Reason : tachy Blood Pressure : / mmHG Vent. Rate : 078 BPM Atrial Rate : 078 BPM P-R Int : 168 ms QRS Dur : 108 ms QT Int : 362 ms P-R-T Axes : 061 -80 054 degrees QTc Int : 412 ms Normal sinus rhythm Left anterior fascicular block Inferior infarct , age undetermined Abnormal ECG No previous ECGs available Referred By: Meredith Lagos Electronically Signed By:ANTWAN BRARERA MD
== END ==
LOC: HO.CARD 07:55
PROVIDERS: PCP Internal Medicine
DX: Z00.00 Encounter for general adult medical examination without abnormal findings (principal); R00.0 Tachycardia, unspecified
CPT/HCPCS: 93005

== ENCOUNTER → 2024-02-17 08:05 | Outpatient (BNV) | payer MEDICARE, SELFPAY | PROVIDERS: PCP Internal Medicine; Visit Provider Internal Medicine Cardiovascular Disease | DX: R94.31 Abnormal electrocardiogram [ECG] [EKG] (principal) | CPT/HCPCS: 93010 ==

== ENCOUNTER → 2024-02-25 16:07 | Outpatient (AMB) | payer MEDICARE, SELFPAY ==
--- NOTE | 2024-02-25 16:08 | A.OFFPC_ITS ---
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 stressed , took verapamil for the Headache.did discussed about [facility] Medical History (Updated 02/09/24 @ 12:37 by Nohemi Merida PA-C) Back pain Umbilical hernia Sebaceous cyst Ventral hernia without obstruction or gangrene Disc disease, degenerative, cervical Degenerative disc disease, cervical Abdominal wall hernia Pain of left scapula Cough Hypertriglyceridemia Migraine GERD (gastroesophageal reflux disease) Obstructive sleep apnea Surgical History History of umbilical hernia repair (08/25/22) History of shoulder surgery Family History (Updated 11/26/22 @ 08:40 by Kelly Chapin CMA) Father No problems noted. Mother No problems noted. Brother No problems noted. Sister No problems noted. Sister No problems noted. Sister No problems noted. Sister No problems noted. Social History (Updated 06/07/23 @ 09:04 by Mykel Chapa MD) Housing: Apartment Housing Other:: mobile home Are you a primary critical care technician to a significant other at home: No Do you presently have visiting nurse or other home services: No Alcohol intake: never Patient Tobacco Use Status: Current everyday Tobacco user Tobacco use type: Cigarette Cigarette Packs Per Day: 1 Cigarettes Per Day: 20.0 Years Smoked: 25, pack a day e-Cigarette/Vaping Use: Never Used Second Hand Smoke Exposure: Yes service: No Current occupational status: disabled Cognitive needs: No Hearing needs: No Vision needs: Yes Questionnaire Thrive Questionnaire Date Thrive assessed: 08/23/23 AUDIT C Alcohol Use Questionnaire (AUDIT-C) 1. How often do you have a drink containing alcohol?: Monthly or less 2. How many drinks containing alcohol do you have on a typical day when you are drinking?: 1 or 2 3. How often do you have six or more drinks on one occasion?: Never Total Score: 1 WALLACE-7 AMB Questionnaire WALLACE-7 Date WALLACE - 7 assessed: 08/23/23 Source: Developed by Drs. Dagoberto Mazariegos, Nery Shin, Jero Emanuel and colleagues, with an educational penelope from [employer]. Physical exam (Primary Care) Tobacco/Smoking Status: Tobacco use Status Tobacco use date assessed 10/06/23 02/25/24 16:09 Patient Tobacco Use Status Current everyday Tobacco 02/25/24 16:09 Tobacco use type Cigarette 02/25/24 16:09 e-Cigarette/Vaping Use Never Used 02/25/24 16:09 Thrive Assessment: Date of Thrive Assessment Date Thrive assessed 08/23/23 02/25/24 16:09 Telehealth Telehealth Telehealth Platform: Telephone Location of provider rendering services: practice address Location of patient: address on file Patient Identification confirmed using: Name, : Yes Telehealth method: voice only (Android ) Patient verbally consented to treatment: Yes Patient verbally consented to billing insurance company: Yes Patient informed of any privacy concerns related to visit: Yes Minutes spent on Phone/Video with Pt.: 15 Assessment and Plan Assessment & Plan (1) Cluster headache: Code(s): G44.009 - Cluster headache syndrome, unspecified, not intractable Qualifiers: Headache chronicity pattern: episodic headache Intractability: not intractable Qualified Code(s): G44.019 - Episodic cluster headache, not intractable Plan: Oxygen 12 L NC x 15 min prn for PA. discussed about side effects of oxygen. As for verapamil continue this is helping. Discussed that I have prescribed amitriptyline to help with sleep. Medications: Changed From Oxygen Home Use As directed 1 ea 0RF cluster headaches G44.019 - Episodic cluster headache, not intractable To Oxygen Home Use As directed 12 L NC for 15 min prn CANAS 1 ea 0RF cluster headaches G44.019 - Episodic cluster headache, not intractable Coding Level of Care Code Tele Est Pt Level 3 (16618) Diagnoses Episodic cluster headache, not intractable G44.019 Headache chronicity pattern: episodic headache Intractability: not intractable
== END ==
LOC: HO.HMGH 16:07
PROVIDERS: PCP Internal Medicine; Visit Provider Internal Medicine
DX: G44.019 Episodic cluster headache, not intractable (principal)
CPT/HCPCS: 99442